=== PATIENT | male | born 1975 | race Caucasian/White ===

== ENCOUNTER 2023-06-10 17:03 | Inpatient (IN) | payer OTHER ==
[~2023-06-10] VITALS: Ht 170.2 cm; Wt 57.6 kg
[2023-06-10] MEDS ORDERED: VANCOMYCIN 1G PREMIX 200 ML IV ONE (17:15)
[2023-06-10] MEDS ORDERED: MEROPENEM 1,000 MG in SODIUM CHLORIDE 0.9% 100 ML IV ONE (17:15)
[2023-06-10] MEDS ORDERED: SODIUM CHLORIDE 0.9% 1,000 ML IV ONE (17:15)
[2023-06-10] MEDS ORDERED: PROPOFOL 10MG/ML 100ML 100 ML IV ONE (17:15)
[2023-06-10] MEDS ORDERED: FENTANYL CITRATE/PF 50MCG/ML 2ML VIAL IV ONE (17:15)
[2023-06-10 17:24] VITALS: PULSE 140; RESP 23
[2023-06-10 17:25] LABS: BG CARBOXYHEMOGLOBIN 0.6 % (0.5-1.5); BG DEOXYHEMOGLOBIN 0.2 % (0.0-5.0); BG HCO3 ACT 25.4 mmol/L (22.0-26.0); BG METHEMOGLOBIN 0.5 % (0.0-1.5); BG OXYGEN SATURATION 99.8 % (92.0-98.5); BG OXYHEMOGLOBIN 98.7 % (94.0-97.0); BG PCO2 35.4 mmHg (35.0-45.0); BG PH 7.474 (7.350-7.450); BG PO2 295.4 mmHg (75.0-100.0); BG SAMPLE SITE RIGHT RADIAL; BG TOTAL HEMOGLOBIN 11.7 g/dL (12.0-18.0); BG VENT MODE VENT - AC
[2023-06-10] MEDS ORDERED: DOXYCYCLINE HYCLATE 100 MG/VIAL IV ONE (17:30)
[2023-06-10 17:39] LABS: BASOPHILS % 0.2 % (0.0-2.0); EOSINOPHILS % 0.2 % (0.0-5.0); HEMATOCRIT. 33.3 % (42.0-52.0); HEMOGLOBIN. 10.7 g/dL (14.0-18.0); LYMPHOCYTES % 7.5 % (20.0-50.0); MEAN CORPUSCULAR HEMOGLOBIN 27.8 pg (28.0-32.0); MEAN CORPUSCULAR HGB CONC 32.1 g/dL (31.0-37.0); MEAN CORPUSCULAR VOLUME 86.6 fL (80.0-94.0); MONOCYTES % 6.7 % (2.0-8.0); NEUTROPHILS % 85.4 % (40.0-76.0); PLATELET 344 x1000/uL (130-400); RED BLOOD CELL COUNT 3.85 mill/uL (4.7-6.1); RED CELL DISTRIBUTION WIDTH 19.9 % (11.6-14.6); WHITE BLOOD COUNT 5.2 x1000/uL (4.5-11.0)
[2023-06-10 17:44] LABS: CHLORIDE 93 mEq/L (98-107); INDEX HEMOLYSI 1 (1-3); INDEX ICTERIC 1 (1-4); INDEX LIPEMIC 1 (1-3); POTASSIUM 4.6 mEq/L (3.5-5.1); SODIUM 126 mEq/L (136-145)
[2023-06-10] MEDS ORDERED: DOXYCYCLINE 100MG in DEXTROSE 5% WATER 100ML IV NR (17:45)
[2023-06-10 17:47] LABS: D-DIMER 4.03 mg/L FEU (<0.50); INR 1.1; PROTHROMBIN TIME 11.5 sec (9.6-11.0)
[2023-06-10 18:04] LABS: ALANINE AMINOTRANSFERASE 84 IU/L (13-61); ASPARTATE AMINOTRANSFERASE 114 IU/L (15-37); BILIRUBIN TOTAL 0.5 mg/dL (0.1-1.0); CALCIUM 7.8 mg/dL (8.5-10.1); CARBON DIOXIDE 27 mEq/L (21-32); CREATININE 0.5 mg/dL (0.6-1.3); NT PRO B-TYPE NATRIURETIC PEP 3705 pg/mL (5-125); TROPONIN I HIGH SENSITIVITY 38 ng/L (<78); UREA NITROGEN BLOOD 13 mg/dL (7-21)
[2023-06-10 18:20] LABS: GLUCOSE 46 mg/dL (70-105)
[2023-06-10] MEDS ORDERED: ACETAMINOPHEN 325MG SUPP PR ONE (18:30)
[2023-06-10] MEDS ORDERED: ACETAMINOPHEN 325MG SUPP PR NR (18:30)
[2023-06-10] MEDS ORDERED: DEXTROSE 50% WATER 50ML SYRINGE IV ONE (18:30)
[2023-06-10] MEDS ORDERED: DEXT 5%/0.9% NACL 500 ML IV ONE (18:30)
[2023-06-10 18:44] LABS: CLARITY URINE CLOUDY (CLEAR); COLOR URINE DARK YELLOW (YELLOW); GLUCOSE URINE NEGATIVE (NEGATIVE); KETONES URINE NEGATIVE (NEGATIVE); LEUKOCYTE ESTERASE URINE NEGATIVE (NEGATIVE); NITRITE URINE NEGATIVE (NEGATIVE); OCCULT BLOOD URINE 1+ (NEGATIVE); PH URINE 5.5 (4.5-8.0); PROTEIN URINE 2+ (NEGATIVE); SPECIFIC GRAVITY URINE 1.022 (1.005-1.030); UROBILINOGEN URINE 0.2 E.U./dL (0.2-1.0)
[2023-06-10 18:46] LABS: SQUAMOUS EPITHELIAL CELL URINE 1+ /lpf (RARE/1+); YEAST URINE NONE SEEN
[2023-06-10 19:09] LABS: AMORPHOUS SEDIMENT URINE 1+ /lpf; BACTERIA URINE 2+; WBC URINE 0-2 /hpf (0-2)
[2023-06-10 19:10] LABS: FINE GRANULAR CASTS URINE 0-5 /lpf
[2023-06-10 19:11] LABS: URIC ACID CRYSTALS URINE 1+ /lpf
[2023-06-10 19:57] LABS: TROPONIN I HIGH SENSITIVITY 181 ng/L (<78)
[2023-06-10 20:06] VITALS: PULSE 112; RESP 20
[2023-06-10] MEDS ORDERED: FENTANYL 2500MCG/250ML PMX 250 ML IV ONE (20:30)
[2023-06-10] MEDS ORDERED: FENTANYL CITRATE 2,500 MCG in SODIUM CHLORIDE 0.9% 200 ML IV PRN (21:30)
[2023-06-10 21:57] VITALS: PULSE 111; RESP 22
[2023-06-10] MEDS ORDERED: NOREPINEPHRINE 8MG/250ML PMX 250 ML IV ONE (22:45)
[2023-06-10] MEDS ORDERED: PROPOFOL 10MG/ML 100ML 100 ML IV PRN (23:30)
[2023-06-10] MEDS ORDERED: IPRATROPIUM/ALBUTEROL 0.5-3(2.5)MG/3ML NEB HHN PRN (23:30)
[2023-06-11] VITALS (29 sets, daily range): BP systolic 86–113; BP diastolic 57–80; PULSE 20–109; RESP 16–21; TEMP 97.6–99.4
[2023-06-11] MEDS: IPRATROPIUM/ALBUTEROL 0.5-3(2.5)MG/3ML NEB HHN SCH ×4 (00:22→20:45)
[2023-06-11] MEDS: PROPOFOL 10MG/ML 100ML 100 ML IV PRN ×4 (03:19→20:15)
[2023-06-11] MEDS: NOREPINEPHRINE 8MG/250ML PMX 250 ML IV PRN ×3 (07:06→20:48)
[2023-06-11] MEDS: PIPERACILLIN/TAZOBACTAM 3.375 G in DEXTROSE 5% WATER 50 ML IV SCH ×3 (07:07→22:18)
[2023-06-11] MEDS: SODIUM CHLORIDE 0.9% 1,000 ML IV SCH ×2 (07:42→18:00)
[2023-06-11] MEDS ORDERED: VANCOMYCIN 1.25GM PMX (XELLIA) 250 ML IV SCH (08:30)
[2023-06-11] MEDS: PANTOPRAZOLE SODIUM 40 MG/VIAL IV SCH ×2 (08:33→17:59)
[2023-06-11] MEDS ORDERED: ENOXAPARIN 40MG/0.4ML SYR SUBCUT SCH (09:00)
[2023-06-11 09:21] LABS: BG BASE EXCESS 0.5 mmol/L (-2.0-2.0); BG CARBOXYHEMOGLOBIN 0.3 % (0.5-1.5); BG DEOXYHEMOGLOBIN 1.1 % (0.0-5.0); BG FRACTION INSPIRED OXYGEN 60; BG METHEMOGLOBIN 0.4 % (0.0-1.5); BG OXYGEN SATURATION 98.9 % (92.0-98.5); BG OXYHEMOGLOBIN 98.2 % (94.0-97.0); BG PCO2 39.4 mmHg (35.0-45.0); BG SAMPLE SITE RIGHT RADIAL; BG TOTAL HEMOGLOBIN 10.8 g/dL (12.0-18.0); BG VENT MODE VENT - AC
[2023-06-11 09:36] LABS: BASOPHILS % 0.2 % (0.0-2.0); EOSINOPHILS % 0.2 % (0.0-5.0); HEMOGLOBIN. 8.8 g/dL (14.0-18.0); LYMPHOCYTES % 7.6 % (20.0-50.0); MEAN CORPUSCULAR HEMOGLOBIN 28.4 pg (28.0-32.0); MEAN CORPUSCULAR HGB CONC 32.5 g/dL (31.0-37.0); MEAN CORPUSCULAR VOLUME 87.5 fL (80.0-94.0); MEAN PLATELET VOLUME 7.7 fl (7.4-10.4); PLATELET 377 x1000/uL (130-400); RED BLOOD CELL COUNT 3.09 mill/uL (4.7-6.1); RED CELL DISTRIBUTION WIDTH 20.4 % (11.6-14.6); WHITE BLOOD COUNT 7.5 x1000/uL (4.5-11.0)
[2023-06-11 10:04] LABS: CALCIUM 7.1 mg/dL (8.5-10.1); CARBON DIOXIDE 25 mEq/L (21-32); CHLORIDE 105 mEq/L (98-107); GLUCOSE 110 mg/dL (70-105); INDEX HEMOLYSI 1 (1-3); INDEX ICTERIC 1 (1-4); INDEX LIPEMIC 1 (1-3); POTASSIUM 3.9 mEq/L (3.5-5.1); SODIUM 134 mEq/L (136-145); UREA NITROGEN BLOOD 9 mg/dL (7-21)
[2023-06-11 10:07] LABS: CREATININE 0.6 mg/dL (0.6-1.3)
[2023-06-11] MEDS: DEXT 5% IV SCH ×3 (13:28→21:32)
[2023-06-11] MEDS: WATER IV SCH ×3 (13:28→21:32)
[2023-06-11] MEDS: SULFAMETHOXAZOLE IV SCH ×2 (13:28→21:32)
[2023-06-11] MEDS: TRIMETHOPRIM IV SCH ×2 (13:28→21:32)
[2023-06-11] MEDS: VANCOMYCIN 750MG PREMIX 150 ML IV SCH ×2 (13:28→23:00)
[2023-06-11 14:32] LABS: SODIUM URINE RANDOM 45 mEq/L
[2023-06-11 14:36] LABS: *AMPHETAMINES SCREEN URINE NEGATIVE (NEGATIVE); *BARBITURATES SCREEN URINE NEGATIVE (NEGATIVE); *BENZODIAZEPINES SCREEN URINE NEGATIVE (NEGATIVE); *COCAINE SCREEN URINE NEGATIVE (NEGATIVE); CANNABINOID URINE SCREEN NEGATIVE (NEGATIVE); ECSTASY MDMA SCREEN URINE NEGATIVE (NEGATIVE); METHADONE URINE SCREEN NEGATIVE (NEGATIVE); OPIATES URINE SCREEN NEGATIVE (NEGATIVE); PHENCYCLIDINE URINE SCREEN NEGATIVE (NEGATIVE)
[2023-06-11 14:46] LABS: OSMOLALITY URINE 241 mOsm/kg (500-850)
[2023-06-11] MEDS: AZITHROMYCIN IV SCH (14:54)
[2023-06-11] MEDS ORDERED: PROPOFOL 10MG/ML 100ML 100 ML IV PRN (16:00)
[2023-06-11] MEDS ORDERED: FENTANYL 2500MCG/250ML PMX 250 ML IV PRN (16:30)
[2023-06-11 17:54] LABS: HEPATITIS B SURFACE ANTIGEN NEGATIVE
[2023-06-11 18:22] LABS: HEPATITIS B CORE AB IGM NEGATIVE
[2023-06-11 18:57] LABS: HEPATITIS C VIR.AB 0.12 INDEXVAL (0.00-0.80)
[2023-06-11 19:33] LABS: HEPATITIS A AB IGM NEGATIVE (NEGATIVE)
[2023-06-12] VITALS (33 sets, daily range): BP systolic 87–128; BP diastolic 50–86; PULSE 84–120; RESP 14–28; TEMP 98.9–99.5; O2SAT 97
[2023-06-12] MEDS: IPRATROPIUM/ALBUTEROL 0.5-3(2.5)MG/3ML NEB HHN SCH ×4 (01:09→20:37)
[2023-06-12] MEDS: NOREPINEPHRINE 8MG/250ML PMX 250 ML IV PRN ×2 (02:19→07:24)
[2023-06-12] MEDS: PROPOFOL 10MG/ML 100ML 100 ML IV PRN ×2 (02:32→09:19)
[2023-06-12 04:44] LABS: HEMATOCRIT. 28.3 % (42.0-52.0); HEMOGLOBIN. 9.4 g/dL (14.0-18.0); MEAN CORPUSCULAR HEMOGLOBIN 28.4 pg (28.0-32.0); MEAN CORPUSCULAR HGB CONC 33.2 g/dL (31.0-37.0); MEAN CORPUSCULAR VOLUME 85.7 fL (80.0-94.0); MEAN PLATELET VOLUME 7.6 fl (7.4-10.4); PLATELET 333 x1000/uL (130-400); RED CELL DISTRIBUTION WIDTH 19.6 % (11.6-14.6); WHITE BLOOD COUNT 5.6 x1000/uL (4.5-11.0)
[2023-06-12] MEDS: PIPERACILLIN/TAZOBACTAM 3.375 G in DEXTROSE 5% WATER 50 ML IV SCH ×3 (04:52→21:29)
[2023-06-12 04:56] LABS: CHLORIDE 100 mEq/L (98-107); INDEX HEMOLYSI 1 (1-3); INDEX ICTERIC 1 (1-4); INDEX LIPEMIC 1 (1-3); POTASSIUM 4.2 mEq/L (3.5-5.1); SODIUM 130 mEq/L (136-145)
[2023-06-12] MEDS: TRIMETHOPRIM IV SCH ×3 (05:07→21:29)
[2023-06-12] MEDS: WATER IV SCH ×3 (05:07→21:29)
[2023-06-12] MEDS: DEXT 5% IV SCH ×3 (05:07→21:29)
[2023-06-12] MEDS: SULFAMETHOXAZOLE IV SCH ×3 (05:07→21:29)
[2023-06-12 05:18] LABS: ALANINE AMINOTRANSFERASE 49 IU/L (13-61); ALBUMIN 1.5 g/dL (3.4-5.0); ASPARTATE AMINOTRANSFERASE 36 IU/L (15-37); BILIRUBIN DIRECT 0.1 mg/dL (0.0-0.2); BILIRUBIN TOTAL 0.5 mg/dL (0.1-1.0); CALCIUM 6.7 mg/dL (8.5-10.1); CARBON DIOXIDE 24 mEq/L (21-32); CREATININE 0.6 mg/dL (0.6-1.3); GLUCOSE 265 mg/dL (70-105); TRIGLYCERIDE 302 mg/dL (0-150); UREA NITROGEN BLOOD 12 mg/dL (7-21); VANCOMYCIN TROUGH 25.5 ug/mL (5.0-10.0)
[2023-06-12 05:37] LABS: DIFFERENTIAL COMMENT 1
[2023-06-12 06:15] LABS: TROPONIN I HIGH SENSITIVITY 78 ng/L (<78)
[2023-06-12] MEDS: VANCOMYCIN 750MG PREMIX 150 ML IV SCH ×2 (06:31→21:29)
[2023-06-12] MEDS: SODIUM CHLORIDE 0.9% 1,000 ML IV SCH ×2 (07:25→21:29)
[2023-06-12] MEDS ORDERED: DEXTROSE 50% WATER 50ML SYRINGE IV PRN (08:30)
[2023-06-12] MEDS: PANTOPRAZOLE SODIUM 40 MG/VIAL IV SCH ×2 (09:18→16:22)
[2023-06-12 10:11] LABS: BG BASE EXCESS -2.7 mmol/L (-2.0-2.0); BG CARBOXYHEMOGLOBIN 0.3 % (0.5-1.5); BG DEOXYHEMOGLOBIN 3.1 % (0.0-5.0); BG FRACTION INSPIRED OXYGEN 40; BG HCO3 ACT 22.3 mmol/L (22.0-26.0); BG METHEMOGLOBIN 0.1 % (0.0-1.5); BG OXYGEN SATURATION 96.9 % (92.0-98.5); BG OXYHEMOGLOBIN 96.5 % (94.0-97.0); BG PCO2 39.8 mmHg (35.0-45.0); BG PH 7.367 (7.350-7.450); BG PO2 97.3 mmHg (75.0-100.0); BG SAMPLE SITE RIGHT RADIAL; BG VENT MODE VENT - AC
[2023-06-12 12:12] LABS: ANISOCYTOSIS 1+; PLATELET ESTIMATE NORMAL
[2023-06-12] MEDS: ONDANSETRON HCL 4MG/2ML INJ IV PRN (12:50)
[2023-06-12] MEDS: INSULIN LISPRO 100 UNITS/ML SUBCUT SCH ×2 (12:51→17:36)
[2023-06-12] MEDS: BLOOD SUGAR DIAGNOSTIC STRIP TEST SCH ×2 (12:51→17:36)
[2023-06-12 13:07] LABS: BG BASE EXCESS -0.4 mmol/L (-2.0-2.0); BG CARBOXYHEMOGLOBIN 0.3 % (0.5-1.5); BG DEOXYHEMOGLOBIN 2.5 % (0.0-5.0); BG FRACTION INSPIRED OXYGEN 40; BG HCO3 ACT 24.1 mmol/L (22.0-26.0); BG METHEMOGLOBIN 0.6 % (0.0-1.5); BG OXYGEN SATURATION 97.5 % (92.0-98.5); BG OXYHEMOGLOBIN 96.6 % (94.0-97.0); BG PCO2 38.6 mmHg (35.0-45.0); BG PH 7.413 (7.350-7.450); BG PO2 102.2 mmHg (75.0-100.0); BG SAMPLE SITE RIGHT RADIAL; BG TOTAL HEMOGLOBIN 10.3 g/dL (12.0-18.0); BG VENT MODE VENT - CPAP
[2023-06-13] VITALS (27 sets, daily range): BP systolic 82–117; BP diastolic 49–71; PULSE 95–111; RESP 18–25; TEMP 98–99.1; O2SAT 94–97
[2023-06-13] MEDS: BLOOD SUGAR DIAGNOSTIC STRIP TEST SCH ×4 (00:20→17:46)
[2023-06-13] MEDS: IPRATROPIUM/ALBUTEROL 0.5-3(2.5)MG/3ML NEB HHN SCH ×4 (01:47→20:43)
[2023-06-13] MEDS ORDERED: NALOXONE HCL 0.4MG/ML VIAL IV PRN (02:30)
[2023-06-13] MEDS: MORPHINE SULFATE 2 MG/ML CPJ (NOT FOR IM USE) IV PRN ×2 (02:31→17:57)
[2023-06-13] MEDS ORDERED: SULFAMETHOXAZOLE IV SCH ×3 (04:07→12:41)
[2023-06-13] MEDS ORDERED: WATER IV SCH ×3 (04:07→12:41)
[2023-06-13] MEDS ORDERED: DEXT 5% IV SCH ×3 (04:07→12:41)
[2023-06-13] MEDS ORDERED: TRIMETHOPRIM IV SCH ×3 (04:07→12:41)
[2023-06-13] MEDS: PIPERACILLIN/TAZOBACTAM 3.375 G in DEXTROSE 5% WATER 50 ML IV SCH ×3 (05:27→21:52)
[2023-06-13 05:32] LABS: HEMOGLOBIN. 7.9 g/dL (14.0-18.0); MEAN CORPUSCULAR VOLUME 84.8 fL (80.0-94.0); MEAN PLATELET VOLUME 7.4 fl (7.4-10.4); PLATELET 264 x1000/uL (130-400); RED BLOOD CELL COUNT 2.83 mill/uL (4.7-6.1); RED CELL DISTRIBUTION WIDTH 19.2 % (11.6-14.6); WHITE BLOOD COUNT 3.9 x1000/uL (4.5-11.0)
[2023-06-13 05:49] LABS: DIFFERENTIAL COMMENT 1
[2023-06-13 05:53] LABS: CHLORIDE 97 mEq/L (98-107); INDEX HEMOLYSI 1 (1-3); INDEX ICTERIC 1 (1-4); INDEX LIPEMIC 1 (1-3); POTASSIUM 4.1 mEq/L (3.5-5.1); SODIUM 127 mEq/L (136-145)
[2023-06-13 05:56] LABS: CARBON DIOXIDE 28 mEq/L (21-32); CREATININE 0.5 mg/dL (0.6-1.3); GLUCOSE 75 mg/dL (70-105); UREA NITROGEN BLOOD 9 mg/dL (7-21)
[2023-06-13] MEDS: INSULIN LISPRO 100 UNITS/ML SUBCUT SCH ×4 (06:00→17:45)
[2023-06-13] MEDS: SODIUM CHLORIDE 0.9% 1,000 ML IV SCH ×2 (06:55→10:10)
[2023-06-13] MEDS: VANCOMYCIN 750MG PREMIX 150 ML IV SCH ×2 (09:24→20:51)
[2023-06-13] MEDS: PANTOPRAZOLE SODIUM 40 MG/VIAL IV SCH ×2 (09:24→17:45)
[2023-06-13] MEDS: MENTHOL/LANOLIN/CALAMINE/ZN OX OINT 71GM TOP SCH ×2 (10:10→17:45)
[2023-06-13] MEDS ORDERED: ALBUMIN HUMAN 12.5G/250ML (5%) IV PRN (10:15)
[2023-06-13 10:53] LABS: ANISOCYTOSIS 2+; PLATELET ESTIMATE NORMAL
[2023-06-13] MEDS: TRIMETHOPRIM IV SCH ×2 (14:09→20:51)
[2023-06-13] MEDS: MIDODRINE HCL 5MG TABLET PO SCH ×2 (14:09→21:52)
[2023-06-13] MEDS: DEXT 5% IV SCH ×2 (14:09→20:51)
[2023-06-13] MEDS: WATER IV SCH ×2 (14:09→20:51)
[2023-06-13] MEDS: SULFAMETHOXAZOLE IV SCH ×2 (14:09→20:51)
[2023-06-14] VITALS (22 sets, daily range): BP systolic 80–113; BP diastolic 52–74; PULSE 93–106; RESP 18–24; TEMP 98.4–99.5; O2SAT 96–97
[2023-06-14] MEDS: IPRATROPIUM/ALBUTEROL 0.5-3(2.5)MG/3ML NEB HHN SCH ×3 (00:54→13:56)
[2023-06-14 05:41] LABS: BASOPHILS % 0.5 % (0.0-2.0); EOSINOPHILS % 0.3 % (0.0-5.0); HEMOGLOBIN. 7.3 g/dL (14.0-18.0); LYMPHOCYTES % 9.6 % (20.0-50.0); MEAN CORPUSCULAR HEMOGLOBIN 28.2 pg (28.0-32.0); MEAN CORPUSCULAR HGB CONC 33.1 g/dL (31.0-37.0); MEAN PLATELET VOLUME 7.4 fl (7.4-10.4); MONOCYTES % 8.1 % (2.0-8.0); NEUTROPHILS % 81.5 % (40.0-76.0); PLATELET 240 x1000/uL (130-400); RED BLOOD CELL COUNT 2.59 mill/uL (4.7-6.1); RED CELL DISTRIBUTION WIDTH 18.9 % (11.6-14.6); WHITE BLOOD COUNT 4.3 x1000/uL (4.5-11.0)
[2023-06-14] MEDS: INSULIN LISPRO 100 UNITS/ML SUBCUT SCH ×4 (06:00→17:15)
[2023-06-14 06:08] LABS: CHLORIDE 99 mEq/L (98-107); INDEX HEMOLYSI 1 (1-3); INDEX ICTERIC 1 (1-4); INDEX LIPEMIC 1 (1-3); SODIUM 131 mEq/L (136-145)
[2023-06-14 06:28] LABS: ALBUMIN 1.6 g/dL (3.4-5.0); CALCIUM 7.2 mg/dL (8.5-10.1); CARBON DIOXIDE 27 mEq/L (21-32); CREATININE 0.5 mg/dL (0.6-1.3); GLUCOSE 80 mg/dL (70-105); PREALBUMIN 9.4 mg/dL (20.0-40.0); UREA NITROGEN BLOOD 7 mg/dL (7-21)
[2023-06-14] MEDS: TRIMETHOPRIM IV SCH ×3 (06:54→22:56)
[2023-06-14] MEDS: SULFAMETHOXAZOLE IV SCH ×3 (06:54→22:56)
[2023-06-14] MEDS: WATER IV SCH ×3 (06:54→22:56)
[2023-06-14] MEDS: DEXT 5% IV SCH ×3 (06:54→22:56)
[2023-06-14] MEDS: PIPERACILLIN/TAZOBACTAM 3.375 G in DEXTROSE 5% WATER 50 ML IV SCH ×3 (06:54→22:57)
[2023-06-14] MEDS: BLOOD SUGAR DIAGNOSTIC STRIP TEST SCH ×4 (06:55→17:15)
[2023-06-14] MEDS: MIDODRINE HCL 5MG TABLET PO SCH ×3 (06:55→23:03)
[2023-06-14 09:11] LABS: % CD 3 POS. LYMPHOCYTES 71.3 % (57.5-86.2); % CD 4 POS. LYMPHOCYTES 3.2 % (30.8-58.5); % CD 8 POS. LYMPH 67.7 % (12.0-35.5); ABSOLUTE CD 3 214 /uL (622-2402); ABSOLUTE CD 4 HELPER 10 /uL (359-1519); ABSOLUTE CD 8 SUPPRESSOR 203 /uL (109-897); ABSOLUTE LYMPHOCYTES 0.3 x10E3/uL (0.7-3.1); ABSOLUTE MONOCYTES 0.3 x10E3/uL (0.1-0.9); ABSOLUTE NEUTROPHILS 3.2 x10E3/uL (1.4-7.0); BASOPHILS 0 % (Not Estab.); CD4/CD8 RATIO 0.05 (0.92-3.72); EOSINOPHILS 0 % (Not Estab.); HEMATOCRIT 24.1 % (37.5-51.0); IMMATURE GRANULOCYTES 5 % (Not Estab.); IMMATURE GRANULOCYTES ABSOLUTE 0.2 x10E3/uL (0.0-0.1); LYMPHOCYTES 8 % (Not Estab.); MEAN CORPUSCULAR HEMOGLOBIN 28.9 pg (26.6-33.0); MEAN CORPUSCULAR HGB CONC. 33.2 g/dL (31.5-35.7); MEAN CORPUSCULAR VOLUME 87 fL (79-97); MONOCYTES 6 % (Not Estab.); NEUTROPHILS 81 % (Not Estab.); PLATELETS 261 x10E3/uL (150-450); RBC 2.77 x10E6/uL (4.14-5.80); RED CELL DISTRIBUTION WIDTH 17.2 % (11.6-15.4); WBC 3.9 x10E3/uL (3.4-10.8)
[2023-06-14] MEDS: PANTOPRAZOLE SODIUM 40 MG/VIAL IV SCH ×2 (09:20→17:18)
[2023-06-14] MEDS: VANCOMYCIN 750MG PREMIX 150 ML IV SCH ×2 (09:21→22:57)
[2023-06-14] MEDS: MENTHOL/LANOLIN/CALAMINE/ZN OX OINT 71GM TOP SCH ×2 (09:22→17:18)
[2023-06-14] MEDS: SODIUM CHLORIDE 0.9% 1,000 ML IV SCH (13:02)
[2023-06-14] MEDS: MORPHINE SULFATE 2 MG/ML CPJ (NOT FOR IM USE) IV PRN (17:19)
[2023-06-14] MEDS: ONDANSETRON HCL 4MG/2ML INJ IV PRN (17:27)
[2023-06-15] MEDS: SODIUM CHLORIDE 0.9% 1,000 ML IV SCH ×2 (02:35→16:06)
[2023-06-15] MEDS: INSULIN LISPRO 100 UNITS/ML SUBCUT SCH ×5 (06:00→23:19)
[2023-06-15] MEDS: TRIMETHOPRIM IV SCH ×3 (06:05→23:19)
[2023-06-15] MEDS: SULFAMETHOXAZOLE IV SCH ×3 (06:05→23:19)
[2023-06-15] MEDS: DEXT 5% IV SCH ×3 (06:05→23:19)
[2023-06-15] MEDS: WATER IV SCH ×3 (06:05→23:19)
[2023-06-15] MEDS: PIPERACILLIN/TAZOBACTAM 3.375 G in DEXTROSE 5% WATER 50 ML IV SCH ×3 (06:06→21:11)
[2023-06-15] MEDS: MIDODRINE HCL 5MG TABLET PO SCH ×3 (06:12→21:11)
[2023-06-15 06:47] LABS: HEMATOCRIT. 26.4 % (42.0-52.0); HEMOGLOBIN. 8.6 g/dL (14.0-18.0); MEAN CORPUSCULAR HGB CONC 32.6 g/dL (31.0-37.0); MEAN CORPUSCULAR VOLUME 85.9 fL (80.0-94.0); MEAN PLATELET VOLUME 7.5 fl (7.4-10.4); PLATELET 238 x1000/uL (130-400); RED BLOOD CELL COUNT 3.08 mill/uL (4.7-6.1); RED CELL DISTRIBUTION WIDTH 18.8 % (11.6-14.6); WHITE BLOOD COUNT 4.5 x1000/uL (4.5-11.0)
[2023-06-15] MEDS: BLOOD SUGAR DIAGNOSTIC STRIP TEST SCH ×5 (06:47→23:19)
[2023-06-15 06:49] LABS: DIFFERENTIAL COMMENT 1
[2023-06-15 07:01] LABS: CHLORIDE 96 mEq/L (98-107); INDEX HEMOLYSI 1 (1-3); INDEX ICTERIC 1 (1-4); INDEX LIPEMIC 1 (1-3); POTASSIUM 4.6 mEq/L (3.5-5.1); SODIUM 128 mEq/L (136-145)
[2023-06-15 07:07] LABS: CALCIUM 7.5 mg/dL (8.5-10.1); CARBON DIOXIDE 28 mEq/L (21-32); CREATININE 0.5 mg/dL (0.6-1.3); GLUCOSE 77 mg/dL (70-105); UREA NITROGEN BLOOD 7 mg/dL (7-21)
[2023-06-15] MEDS: MENTHOL/LANOLIN/CALAMINE/ZN OX OINT 71GM TOP SCH ×2 (09:00→17:00)
[2023-06-15 09:27] VITALS: PULSE 84; RESP 17; O2SAT 97
[2023-06-15] MEDS: IPRATROPIUM/ALBUTEROL 0.5-3(2.5)MG/3ML NEB HHN SCH ×3 (09:27→20:35)
[2023-06-15] MEDS: ONDANSETRON HCL 4MG/2ML INJ IV PRN (09:58)
[2023-06-15] MEDS: PANTOPRAZOLE SODIUM 40 MG/VIAL IV SCH ×2 (09:58→18:09)
[2023-06-15] MEDS: MORPHINE SULFATE 2 MG/ML CPJ (NOT FOR IM USE) IV PRN (10:00)
[2023-06-15 10:45] LABS: NUCLEATED RED BLOOD CELLS 1 /100 WBC; PLATELET ESTIMATE NORMAL
[2023-06-15] MEDS ORDERED: MORPHINE SULFATE 2 MG/ML CPJ (NOT FOR IM USE) IV PRN (10:45)
[2023-06-15 10:46] LABS: ANISOCYTOSIS 2+
[2023-06-15] MEDS: VANCOMYCIN 750MG PREMIX 150 ML IV SCH ×2 (11:12→21:11)
[2023-06-15 12:00] VITALS: BP 145/80; PULSE 90; RESP 18; TEMP 98
[2023-06-15 16:00] VITALS: BP 150/70; PULSE 85; RESP 20; TEMP 99
[2023-06-15 20:00] VITALS: BP 107/64; PULSE 89; RESP 20; TEMP 98.2
[2023-06-15 20:35] VITALS: PULSE 91; RESP 18; O2SAT 98
[2023-06-16] VITALS: BP 100/65; PULSE 85; RESP 19; TEMP 97.9
[2023-06-16] MEDS: IPRATROPIUM/ALBUTEROL 0.5-3(2.5)MG/3ML NEB HHN SCH (01:40)
[2023-06-16 04:00] VITALS: BP 103/70; PULSE 87; RESP 7; TEMP 97.8
[2023-06-16] MEDS: SODIUM CHLORIDE 0.9% 1,000 ML IV SCH ×2 (05:15→17:46)
[2023-06-16] MEDS: PIPERACILLIN/TAZOBACTAM 3.375 G in DEXTROSE 5% WATER 50 ML IV SCH (05:56)
[2023-06-16] MEDS: DEXT 5% IV SCH ×3 (05:56→21:10)
[2023-06-16] MEDS: SULFAMETHOXAZOLE IV SCH ×3 (05:56→21:10)
[2023-06-16] MEDS: WATER IV SCH ×3 (05:56→21:10)
[2023-06-16] MEDS: MIDODRINE HCL 5MG TABLET PO SCH ×3 (05:56→21:13)
[2023-06-16] MEDS: TRIMETHOPRIM IV SCH ×3 (05:56→21:10)
[2023-06-16] MEDS: BLOOD SUGAR DIAGNOSTIC STRIP TEST SCH ×3 (05:57→17:22)
[2023-06-16] MEDS: INSULIN LISPRO 100 UNITS/ML SUBCUT SCH ×3 (06:00→17:23)
[2023-06-16 06:45] LABS: HEMATOCRIT. 27.1 % (42.0-52.0); HEMOGLOBIN. 8.9 g/dL (14.0-18.0); MEAN CORPUSCULAR HEMOGLOBIN 28.2 pg (28.0-32.0); MEAN CORPUSCULAR HGB CONC 32.9 g/dL (31.0-37.0); MEAN CORPUSCULAR VOLUME 85.6 fL (80.0-94.0); MEAN PLATELET VOLUME 7.5 fl (7.4-10.4); PLATELET 251 x1000/uL (130-400); RED BLOOD CELL COUNT 3.17 mill/uL (4.7-6.1); RED CELL DISTRIBUTION WIDTH 18.5 % (11.6-14.6); WHITE BLOOD COUNT 5.6 x1000/uL (4.5-11.0)
[2023-06-16 06:47] LABS: DIFFERENTIAL COMMENT 1
[2023-06-16 07:13] LABS: CHLORIDE 94 mEq/L (98-107); INDEX HEMOLYSI 1 (1-3); INDEX ICTERIC 1 (1-4); INDEX LIPEMIC 1 (1-3); POTASSIUM 4.4 mEq/L (3.5-5.1); SODIUM 127 mEq/L (136-145)
[2023-06-16 07:18] LABS: CALCIUM 7.4 mg/dL (8.5-10.1); CARBON DIOXIDE 28 mEq/L (21-32); CREATININE 0.6 mg/dL (0.6-1.3); GLUCOSE 79 mg/dL (70-105); UREA NITROGEN BLOOD 7 mg/dL (7-21)
[2023-06-16 08:00] VITALS: BP 101/59; PULSE 84; RESP 20; TEMP 98.3
[2023-06-16] MEDS: MENTHOL/LANOLIN/CALAMINE/ZN OX OINT 71GM TOP SCH ×2 (08:58→17:00)
[2023-06-16] MEDS: PANTOPRAZOLE SODIUM 40 MG/VIAL IV SCH ×2 (09:26→17:46)
[2023-06-16] MEDS: VANCOMYCIN 750MG PREMIX 150 ML IV SCH ×2 (09:27→21:11)
[2023-06-16 11:38] LABS: BG BASE EXCESS 2.6 mmol/L (-2.0-2.0); BG CARBOXYHEMOGLOBIN 0.1 % (0.5-1.5); BG HCO3 ACT 27.1 mmol/L (22.0-26.0); BG METHEMOGLOBIN 0.4 % (0.0-1.5); BG OXYGEN SATURATION 86.9 % (92.0-98.5); BG OXYHEMOGLOBIN 86.5 % (94.0-97.0); BG PCO2 41.5 mmHg (35.0-45.0); BG PH 7.433 (7.350-7.450); BG SAMPLE SITE RIGHT BRACHIAL; BG TOTAL HEMOGLOBIN 9.2 g/dL (12.0-18.0); BG VENT MODE ROOM AIR
[2023-06-16 12:00] VITALS: BP 133/95; PULSE 87; RESP 19; TEMP 98.2
[2023-06-16 14:57] LABS: ANISOCYTOSIS 2+; HYPOCHROMASIA 2+; MICROCYTOSIS 1+; PLATELET ESTIMATE NORMAL
[2023-06-16 15:12] LABS: THYROID STIMULATING HORMONE 3.4 uIU/mL (0.36-3.74)
[2023-06-16 16:00] VITALS: BP 105/76; PULSE 84; RESP 18; TEMP 98
[2023-06-16 20:00] VITALS: BP 104/73; PULSE 88; RESP 22; TEMP 98.2
[2023-06-17] VITALS (7 sets, daily range): BP systolic 99–141; BP diastolic 65–76; PULSE 84–94; RESP 16–23; TEMP 97.7–98.2; O2SAT 99
[2023-06-17] MEDS: DEXT 5% IV SCH ×3 (05:49→20:21)
[2023-06-17] MEDS: SULFAMETHOXAZOLE IV SCH ×3 (05:49→20:21)
[2023-06-17] MEDS: WATER IV SCH ×3 (05:49→20:21)
[2023-06-17] MEDS: TRIMETHOPRIM IV SCH ×3 (05:49→20:21)
[2023-06-17] MEDS: BLOOD SUGAR DIAGNOSTIC STRIP TEST SCH ×4 (05:51→17:50)
[2023-06-17] MEDS: MIDODRINE HCL 5MG TABLET PO SCH ×3 (05:51→17:49)
[2023-06-17] MEDS: INSULIN LISPRO 100 UNITS/ML SUBCUT SCH ×4 (06:00→17:54)
[2023-06-17 07:19] LABS: EOSINOPHILS % 0.1 % (0.0-5.0); HEMATOCRIT. 27.2 % (42.0-52.0); HEMOGLOBIN. 9.2 g/dL (14.0-18.0); LYMPHOCYTES % 8.2 % (20.0-50.0); MEAN CORPUSCULAR HEMOGLOBIN 28.7 pg (28.0-32.0); MEAN CORPUSCULAR HGB CONC 33.9 g/dL (31.0-37.0); MEAN CORPUSCULAR VOLUME 84.8 fL (80.0-94.0); MEAN PLATELET VOLUME 7.6 fl (7.4-10.4); MONOCYTES % 5.4 % (2.0-8.0); NEUTROPHILS % 85.3 % (40.0-76.0); PLATELET 255 x1000/uL (130-400); RED BLOOD CELL COUNT 3.21 mill/uL (4.7-6.1); RED CELL DISTRIBUTION WIDTH 18.4 % (11.6-14.6); WHITE BLOOD COUNT 5.4 x1000/uL (4.5-11.0)
[2023-06-17 07:54] LABS: CHLORIDE 93 mEq/L (98-107); INDEX HEMOLYSI 1 (1-3); INDEX ICTERIC 1 (1-4); INDEX LIPEMIC 1 (1-3); POTASSIUM 4.5 mEq/L (3.5-5.1); SODIUM 128 mEq/L (136-145)
[2023-06-17] MEDS: SODIUM CHLORIDE 0.9% 1,000 ML IV SCH ×2 (07:55→20:22)
[2023-06-17 08:00] LABS: CALCIUM 7.3 mg/dL (8.5-10.1); CARBON DIOXIDE 27 mEq/L (21-32); CREATININE 0.5 mg/dL (0.6-1.3); GLUCOSE 92 mg/dL (70-105); UREA NITROGEN BLOOD 7 mg/dL (7-21)
[2023-06-17] MEDS: PANTOPRAZOLE SODIUM 40 MG/VIAL IV SCH (09:17)
[2023-06-17] MEDS: MENTHOL/LANOLIN/CALAMINE/ZN OX OINT 71GM TOP SCH ×2 (09:17→16:38)
[2023-06-17] MEDS ORDERED: IPRATROPIUM/ALBUTEROL 0.5-3(2.5)MG/3ML NEB HHN PRN (11:30)
[2023-06-17] MEDS: IPRATROPIUM/ALBUTEROL 0.5-3(2.5)MG/3ML NEB HHN SCH ×2 (12:00→20:52)
[2023-06-17] MEDS: FAMOTIDINE 20MG/2ML VIAL IV SCH (13:05)
[2023-06-17] MEDS: ONDANSETRON HCL 4MG/2ML INJ IV PRN (20:21)
[2023-06-18] VITALS (10 sets, daily range): BP systolic 96–112; BP diastolic 64–73; PULSE 82–110; RESP 15–20; TEMP 97.6–98.4; O2SAT 95–100
[2023-06-18] MEDS: MIDODRINE HCL 5MG TABLET PO SCH ×4 (00:29→18:33)
[2023-06-18] MEDS: BLOOD SUGAR DIAGNOSTIC STRIP TEST SCH ×4 (00:29→17:45)
[2023-06-18] MEDS: IPRATROPIUM/ALBUTEROL 0.5-3(2.5)MG/3ML NEB HHN SCH ×4 (02:30→20:25)
[2023-06-18] MEDS: SULFAMETHOXAZOLE IV SCH ×3 (05:32→20:54)
[2023-06-18] MEDS: TRIMETHOPRIM IV SCH ×3 (05:32→20:54)
[2023-06-18] MEDS: WATER IV SCH ×4 (05:32→20:54)
[2023-06-18] MEDS: DEXT 5% IV SCH ×4 (05:32→20:54)
[2023-06-18] MEDS: INSULIN LISPRO 100 UNITS/ML SUBCUT SCH ×4 (05:44→17:46)
[2023-06-18 08:12] LABS: HEMATOCRIT. 25.5 % (42.0-52.0); HEMOGLOBIN. 8.5 g/dL (14.0-18.0); MEAN CORPUSCULAR HEMOGLOBIN 28.3 pg (28.0-32.0); MEAN CORPUSCULAR HGB CONC 33.4 g/dL (31.0-37.0); MEAN CORPUSCULAR VOLUME 84.8 fL (80.0-94.0); MEAN PLATELET VOLUME 7.6 fl (7.4-10.4); PLATELET 264 x1000/uL (130-400); RED BLOOD CELL COUNT 3.01 mill/uL (4.7-6.1); RED CELL DISTRIBUTION WIDTH 18.2 % (11.6-14.6); WHITE BLOOD COUNT 4.4 x1000/uL (4.5-11.0)
[2023-06-18 08:20] LABS: DIFFERENTIAL COMMENT 1
[2023-06-18 08:28] LABS: CHLORIDE 96 mEq/L (98-107); INDEX HEMOLYSI 1 (1-3); INDEX ICTERIC 1 (1-4); INDEX LIPEMIC 1 (1-3); POTASSIUM 4.7 mEq/L (3.5-5.1); SODIUM 131 mEq/L (136-145)
[2023-06-18 08:43] LABS: CALCIUM 7.5 mg/dL (8.5-10.1); CARBON DIOXIDE 30 mEq/L (21-32); CREATININE 0.6 mg/dL (0.6-1.3); GLUCOSE 70 mg/dL (70-105); UREA NITROGEN BLOOD 6 mg/dL (7-21)
[2023-06-18] MEDS: FAMOTIDINE 20MG/2ML VIAL IV SCH (08:56)
[2023-06-18] MEDS: MENTHOL/LANOLIN/CALAMINE/ZN OX OINT 71GM TOP SCH ×2 (08:56→17:45)
[2023-06-18] MEDS: SODIUM CHLORIDE 0.9% 1,000 ML IV SCH (10:50)
[2023-06-18] MEDS: AZITHROMYCIN IV SCH (14:12)
[2023-06-18] MEDS: ONDANSETRON HCL 4MG/2ML INJ IV PRN ×2 (14:13→18:33)
[2023-06-19] VITALS (10 sets, daily range): BP systolic 97–116; BP diastolic 62–74; PULSE 90–97; RESP 16–20; TEMP 97.5–98.7; O2SAT 98–99
[2023-06-19] MEDS: MIDODRINE HCL 5MG TABLET PO SCH ×4 (01:39→18:25)
[2023-06-19] MEDS: IPRATROPIUM/ALBUTEROL 0.5-3(2.5)MG/3ML NEB HHN SCH ×3 (02:43→21:17)
[2023-06-19 04:31] LABS: PLATELET ESTIMATE NORMAL
[2023-06-19] MEDS: DEXT 5% IV SCH ×2 (05:25→17:51)
[2023-06-19] MEDS: WATER IV SCH ×2 (05:25→17:51)
[2023-06-19] MEDS: TRIMETHOPRIM IV SCH ×2 (05:25→17:51)
[2023-06-19] MEDS: SULFAMETHOXAZOLE IV SCH ×2 (05:25→17:51)
[2023-06-19] MEDS: INSULIN LISPRO 100 UNITS/ML SUBCUT SCH ×5 (06:00→21:42)
[2023-06-19] MEDS: ONDANSETRON HCL 4MG/2ML INJ IV PRN ×2 (06:53→12:37)
[2023-06-19] MEDS: BLOOD SUGAR DIAGNOSTIC STRIP TEST SCH ×5 (06:53→21:42)
[2023-06-19] MEDS: MENTHOL/LANOLIN/CALAMINE/ZN OX OINT 71GM TOP SCH ×2 (09:00→17:00)
[2023-06-19] MEDS: FAMOTIDINE 20MG/2ML VIAL IV SCH ×2 (09:23→22:08)
[2023-06-19 17:21] LABS: HEMATOCRIT. 25.8 % (42.0-52.0); HEMOGLOBIN. 8.5 g/dL (14.0-18.0); MEAN CORPUSCULAR HEMOGLOBIN 27.8 pg (28.0-32.0); MEAN CORPUSCULAR HGB CONC 32.9 g/dL (31.0-37.0); MEAN CORPUSCULAR VOLUME 84.4 fL (80.0-94.0); MEAN PLATELET VOLUME 7.2 fl (7.4-10.4); PLATELET 267 x1000/uL (130-400); RED BLOOD CELL COUNT 3.05 mill/uL (4.7-6.1); RED CELL DISTRIBUTION WIDTH 18.8 % (11.6-14.6); WHITE BLOOD COUNT 4.5 x1000/uL (4.5-11.0)
[2023-06-19 17:26] LABS: DIFFERENTIAL COMMENT 1
[2023-06-19 17:48] LABS: CHLORIDE 93 mEq/L (98-107); INDEX HEMOLYSI 1 (1-3); INDEX ICTERIC 1 (1-4); INDEX LIPEMIC 1 (1-3); POTASSIUM 4.9 mEq/L (3.5-5.1); SODIUM 128 mEq/L (136-145)
[2023-06-19 17:54] LABS: CALCIUM 7.9 mg/dL (8.5-10.1); CARBON DIOXIDE 28 mEq/L (21-32); CREATININE 0.5 mg/dL (0.6-1.3); GLUCOSE 78 mg/dL (70-105); UREA NITROGEN BLOOD 5 mg/dL (7-21)
[2023-06-20] VITALS (9 sets, daily range): BP systolic 101–122; BP diastolic 55–79; PULSE 78–100; RESP 17–20; TEMP 97.1–98.9; O2SAT 99
[2023-06-20] MEDS: MIDODRINE HCL 5MG TABLET PO SCH ×4 (00:56→18:51)
[2023-06-20] MEDS: IPRATROPIUM/ALBUTEROL 0.5-3(2.5)MG/3ML NEB HHN SCH ×4 (01:27→20:58)
[2023-06-20] MEDS: TRIMETHOPRIM IV SCH ×4 (03:28→20:00)
[2023-06-20] MEDS: SULFAMETHOXAZOLE IV SCH ×4 (03:28→20:00)
[2023-06-20] MEDS: WATER IV SCH ×4 (03:28→20:00)
[2023-06-20] MEDS: DEXT 5% IV SCH ×4 (03:28→20:00)
[2023-06-20] MEDS: BLOOD SUGAR DIAGNOSTIC STRIP TEST SCH ×4 (06:00→21:22)
[2023-06-20] MEDS: INSULIN LISPRO 100 UNITS/ML SUBCUT SCH ×4 (06:00→21:21)
[2023-06-20 07:27] LABS: HEMATOCRIT. 25.7 % (42.0-52.0); HEMOGLOBIN. 8.4 g/dL (14.0-18.0); MEAN CORPUSCULAR HEMOGLOBIN 27.6 pg (28.0-32.0); MEAN CORPUSCULAR HGB CONC 32.7 g/dL (31.0-37.0); MEAN CORPUSCULAR VOLUME 84.4 fL (80.0-94.0); MEAN PLATELET VOLUME 7.1 fl (7.4-10.4); PLATELET 259 x1000/uL (130-400); RED BLOOD CELL COUNT 3.05 mill/uL (4.7-6.1); RED CELL DISTRIBUTION WIDTH 18.3 % (11.6-14.6); WHITE BLOOD COUNT 4.2 x1000/uL (4.5-11.0)
[2023-06-20 07:37] LABS: DIFFERENTIAL COMMENT 1
[2023-06-20 08:07] LABS: CHLORIDE 93 mEq/L (98-107); INDEX HEMOLYSI 1 (1-3); INDEX ICTERIC 1 (1-4); INDEX LIPEMIC 1 (1-3); SODIUM 126 mEq/L (136-145)
[2023-06-20 08:20] LABS: CALCIUM 7.7 mg/dL (8.5-10.1); CARBON DIOXIDE 30 mEq/L (21-32); CREATININE 0.5 mg/dL (0.6-1.3); GLUCOSE 77 mg/dL (70-105); UREA NITROGEN BLOOD 5 mg/dL (7-21)
[2023-06-20] MEDS: MENTHOL/LANOLIN/CALAMINE/ZN OX OINT 71GM TOP SCH ×2 (09:00→17:00)
[2023-06-20] MEDS ORDERED: SODIUM CHLORIDE 0.9% 1,000 ML IV NR (09:45)
[2023-06-20] MEDS: FAMOTIDINE 20MG/2ML VIAL IV SCH ×2 (10:18→10:31)
[2023-06-20 11:11] LABS: ANISOCYTOSIS 1+; PLATELET ESTIMATE NORMAL
[2023-06-20] MEDS: ONDANSETRON HCL 4MG/2ML INJ IV PRN (14:58)
[2023-06-20 17:12] LABS: ANISOCYTOSIS 1+; PLATELET ESTIMATE NORMAL
[2023-06-21] VITALS (8 sets, daily range): BP systolic 91–128; BP diastolic 60–79; PULSE 74–100; RESP 18–21; TEMP 97.8–98.3; O2SAT 98–99
[2023-06-21] MEDS: IPRATROPIUM/ALBUTEROL 0.5-3(2.5)MG/3ML NEB HHN SCH ×5 (00:30→20:52)
[2023-06-21] MEDS: MIDODRINE HCL 5MG TABLET PO SCH ×3 (01:12→06:00)
[2023-06-21] MEDS: ONDANSETRON HCL 4MG/2ML INJ IV PRN ×4 (01:26→21:47)
[2023-06-21] MEDS: FAMOTIDINE 20MG/2ML VIAL IV SCH ×3 (02:00→21:46)
[2023-06-21] MEDS: TRIMETHOPRIM IV SCH ×3 (03:14→18:00)
[2023-06-21] MEDS: DEXT 5% IV SCH ×3 (03:14→18:00)
[2023-06-21] MEDS: SULFAMETHOXAZOLE IV SCH ×3 (03:14→18:00)
[2023-06-21] MEDS: WATER IV SCH ×3 (03:14→18:00)
[2023-06-21] MEDS: INSULIN LISPRO 100 UNITS/ML SUBCUT SCH ×3 (06:00→17:31)
[2023-06-21] MEDS: BLOOD SUGAR DIAGNOSTIC STRIP TEST SCH ×3 (06:35→17:29)
[2023-06-21] MEDS: MENTHOL/LANOLIN/CALAMINE/ZN OX OINT 71GM TOP SCH (09:00)
[2023-06-21 10:59] LABS: HEMOGLOBIN. 8.4 g/dL (14.0-18.0); MEAN CORPUSCULAR HEMOGLOBIN 28.4 pg (28.0-32.0); MEAN CORPUSCULAR HGB CONC 33.8 g/dL (31.0-37.0); MEAN CORPUSCULAR VOLUME 84.1 fL (80.0-94.0); PLATELET 256 x1000/uL (130-400); RED BLOOD CELL COUNT 2.97 mill/uL (4.7-6.1)
[2023-06-21 11:08] LABS: DIFFERENTIAL COMMENT 1
[2023-06-21 11:28] LABS: CHLORIDE 88 mEq/L (98-107); INDEX HEMOLYSI 1 (1-3); INDEX ICTERIC 1 (1-4); INDEX LIPEMIC 1 (1-3); POTASSIUM 4.5 mEq/L (3.5-5.1); SODIUM 123 mEq/L (136-145)
[2023-06-21 11:33] LABS: CALCIUM 7.1 mg/dL (8.5-10.1); CARBON DIOXIDE 30 mEq/L (21-32); CREATININE 0.5 mg/dL (0.6-1.3); GLUCOSE 89 mg/dL (70-105); UREA NITROGEN BLOOD 5 mg/dL (7-21)
[2023-06-21] MEDS: ENOXAPARIN 40MG/0.4ML SYR SUBCUT SCH (12:00)
[2023-06-21] MEDS: MIDODRINE HCL 2.5MG TABLET PO SCH ×2 (14:00→22:06)
[2023-06-21 17:55] LABS: ANISOCYTOSIS 1+; PLATELET ESTIMATE NORMAL
[2023-06-22] VITALS (7 sets, daily range): BP systolic 96–115; BP diastolic 50–77; PULSE 66–94; RESP 17–20; TEMP 97.7–98.7
[2023-06-22] MEDS: WATER IV SCH ×3 (02:19→10:32)
[2023-06-22] MEDS: SULFAMETHOXAZOLE IV SCH ×3 (02:19→10:32)
[2023-06-22] MEDS: TRIMETHOPRIM IV SCH ×3 (02:19→10:32)
[2023-06-22] MEDS: DEXT 5% IV SCH ×3 (02:19→10:32)
[2023-06-22] MEDS: IPRATROPIUM/ALBUTEROL 0.5-3(2.5)MG/3ML NEB HHN SCH ×3 (02:26→20:00)
[2023-06-22] MEDS: INSULIN LISPRO 100 UNITS/ML SUBCUT SCH ×3 (06:00→12:00)
[2023-06-22] MEDS: BLOOD SUGAR DIAGNOSTIC STRIP TEST SCH ×3 (06:13→12:00)
[2023-06-22] MEDS: MIDODRINE HCL 2.5MG TABLET PO SCH ×3 (06:16→21:56)
[2023-06-22] MEDS: ONDANSETRON HCL 4MG/2ML INJ IV PRN ×2 (06:16→14:17)
[2023-06-22 07:21] LABS: HEMATOCRIT. 24.3 % (42.0-52.0); HEMOGLOBIN. 8.1 g/dL (14.0-18.0); MEAN CORPUSCULAR HEMOGLOBIN 27.6 pg (28.0-32.0); MEAN CORPUSCULAR HGB CONC 33.2 g/dL (31.0-37.0); MEAN CORPUSCULAR VOLUME 83.1 fL (80.0-94.0); MEAN PLATELET VOLUME 7.3 fl (7.4-10.4); PLATELET 248 x1000/uL (130-400); RED BLOOD CELL COUNT 2.92 mill/uL (4.7-6.1); RED CELL DISTRIBUTION WIDTH 17.6 % (11.6-14.6); WHITE BLOOD COUNT 2.6 x1000/uL (4.5-11.0)
[2023-06-22 07:24] LABS: DIFFERENTIAL COMMENT 1
[2023-06-22 08:02] LABS: CALCIUM 7.7 mg/dL (8.5-10.1); CARBON DIOXIDE 27 mEq/L (21-32); CHLORIDE 84 mEq/L (98-107); INDEX HEMOLYSI 1 (1-3); INDEX ICTERIC 1 (1-4); INDEX LIPEMIC 1 (1-3)
[2023-06-22 08:06] LABS: CREATININE 0.5 mg/dL (0.6-1.3); GLUCOSE 89 mg/dL (70-105); UREA NITROGEN BLOOD 6 mg/dL (7-21)
[2023-06-22 08:15] LABS: SODIUM 120 mEq/L (136-145)
[2023-06-22] MEDS ORDERED: SODIUM CHLORIDE 3% 500ML IV SOLN IV ONE (09:45)
[2023-06-22] MEDS: FAMOTIDINE 20MG/2ML VIAL IV SCH (09:54)
[2023-06-22] MEDS: METOCLOPRAMIDE HCL 10MG/2ML VIAL IV PRN ×2 (09:55→10:21)
[2023-06-22] MEDS ORDERED: SODIUM POLYSTYRENE SULFONATE 15 G/60 ML BOT PO SCH (10:00)
[2023-06-22] MEDS ORDERED: SODIUM CHLORIDE 3% 500 ML IV SCH (11:00)
[2023-06-22 11:01] LABS: INDEX HEMOLYSI 1 (1-3); INDEX ICTERIC 1 (1-4); INDEX LIPEMIC 1 (1-3)
[2023-06-22 11:49] LABS: ALANINE AMINOTRANSFERASE 31 IU/L (13-61); ALBUMIN 1.8 g/dL (3.4-5.0); ASPARTATE AMINOTRANSFERASE 36 IU/L (15-37); BILIRUBIN DIRECT < 0.1 mg/dL (0.0-0.2); BILIRUBIN TOTAL 0.5 mg/dL (0.1-1.0); PROTEIN TOTAL 5.7 g/dL (6.0-8.3)
[2023-06-22] MEDS ORDERED: PANTOPRAZOLE SODIUM 40 MG/VIAL IV SCH (12:00)
[2023-06-22] MEDS: ENOXAPARIN 40MG/0.4ML SYR SUBCUT SCH (12:22)
[2023-06-22] MEDS: SUCRALFATE 1 G/10 ML UDC PO SCH ×3 (12:26→21:56)
[2023-06-22 13:57] LABS: GAMMA GLUTAMYL TRANSPEPTIDASE 403 IU/L (11-50)
[2023-06-22 14:40] LABS: ANISOCYTOSIS 1+; MICROCYTOSIS 1+; PLATELET ESTIMATE NORMAL
[2023-06-22] MEDS: METOCLOPRAMIDE HCL 10MG/2ML VIAL IV SCH (17:53)
[2023-06-22] MEDS ORDERED: METOCLOPRAMIDE HCL 10MG/2ML VIAL IV SCH (18:00)
[2023-06-23] MEDS: BLOOD SUGAR DIAGNOSTIC STRIP TEST SCH ×5 (00:37→23:20)
[2023-06-23] MEDS: METOCLOPRAMIDE HCL 10MG/2ML VIAL IV SCH ×5 (00:52→23:20)
[2023-06-23 04:41] LABS: HEMATOCRIT. 25.9 % (42.0-52.0); HEMOGLOBIN. 8.6 g/dL (14.0-18.0); MEAN CORPUSCULAR HEMOGLOBIN 27.5 pg (28.0-32.0); MEAN CORPUSCULAR HGB CONC 33.1 g/dL (31.0-37.0); MEAN CORPUSCULAR VOLUME 82.9 fL (80.0-94.0); MEAN PLATELET VOLUME 7.2 fl (7.4-10.4); PLATELET 249 x1000/uL (130-400); RED BLOOD CELL COUNT 3.13 mill/uL (4.7-6.1); RED CELL DISTRIBUTION WIDTH 17.5 % (11.6-14.6); WHITE BLOOD COUNT 3.3 x1000/uL (4.5-11.0)
[2023-06-23 04:46] LABS: DIFFERENTIAL COMMENT 1
[2023-06-23 04:50] LABS: CALCIUM 7.5 mg/dL (8.5-10.1); CARBON DIOXIDE 26 mEq/L (21-32); CHLORIDE 85 mEq/L (98-107); GLUCOSE 79 mg/dL (70-105); INDEX HEMOLYSI 2 (1-3); INDEX ICTERIC 1 (1-4); INDEX LIPEMIC 1 (1-3); POTASSIUM 5.1 mEq/L (3.5-5.1); UREA NITROGEN BLOOD 6 mg/dL (7-21)
[2023-06-23 04:54] LABS: CREATININE 0.4 mg/dL (0.6-1.3)
[2023-06-23] MEDS: MIDODRINE HCL 2.5MG TABLET PO SCH ×3 (05:39→21:17)
[2023-06-23] MEDS: INSULIN LISPRO 100 UNITS/ML SUBCUT SCH ×5 (06:00→23:20)
[2023-06-23 06:20] LABS: SODIUM 115 mEq/L (136-145)
[2023-06-23] MEDS: ATOVAQUONE 750 MG/5 ML UDC PO SCH ×2 (08:10→17:55)
[2023-06-23] MEDS: MENTHOL/LANOLIN/CALAMINE/ZN OX OINT 71GM TOP SCH ×2 (09:00→17:41)
[2023-06-23] MEDS: SUCRALFATE 1 G/10 ML UDC PO SCH ×4 (10:14→21:17)
[2023-06-23] MEDS: SODIUM CHLORIDE 0.9% 1,000 ML IV SCH (10:16)
[2023-06-23] MEDS ORDERED: SODIUM CHLORIDE 3% 500ML IV SOLN IV ONE (11:30)
[2023-06-23 11:59] LABS: ANISOCYTOSIS 1+; PLATELET ESTIMATE NORMAL
[2023-06-23 12:00] VITALS: BP 122/97; PULSE 99; RESP 18; TEMP 96.7
[2023-06-23] MEDS ORDERED: SODIUM CHLORIDE 3% 200 ML IV SCH (12:30)
[2023-06-23] MEDS: ENOXAPARIN 40MG/0.4ML SYR SUBCUT SCH (13:16)
[2023-06-23 16:00] VITALS: BP 114/64; PULSE 92; RESP 20; TEMP 96.9
[2023-06-23] MEDS: ONDANSETRON HCL 4MG/2ML INJ IV PRN (17:43)
[2023-06-23 20:00] VITALS: BP 124/83; PULSE 108; RESP 18; TEMP 99
[2023-06-24] VITALS: BP 104/61; PULSE 116; RESP 18; TEMP 99
[2023-06-24 04:00] VITALS: BP 113/59; PULSE 114; RESP 18; TEMP 97
[2023-06-24] MEDS: INSULIN LISPRO 100 UNITS/ML SUBCUT SCH ×4 (05:45→21:13)
[2023-06-24] MEDS: BLOOD SUGAR DIAGNOSTIC STRIP TEST SCH ×4 (05:45→21:13)
[2023-06-24] MEDS: SODIUM CHLORIDE 0.9% 1,000 ML IV SCH (05:57)
[2023-06-24] MEDS: METOCLOPRAMIDE HCL 10MG/2ML VIAL IV SCH ×3 (05:57→17:21)
[2023-06-24] MEDS: SUCRALFATE 1 G/10 ML UDC PO SCH ×4 (05:57→21:13)
[2023-06-24] MEDS: MIDODRINE HCL 2.5MG TABLET PO SCH ×3 (05:57→21:13)
[2023-06-24 06:41] LABS: HEMATOCRIT. 21.2 % (42.0-52.0); HEMOGLOBIN. 7.4 g/dL (14.0-18.0); MEAN CORPUSCULAR HEMOGLOBIN 28.7 pg (28.0-32.0); MEAN PLATELET VOLUME 6.9 fl (7.4-10.4); PLATELET 228 x1000/uL (130-400); RED BLOOD CELL COUNT 2.58 mill/uL (4.7-6.1); RED CELL DISTRIBUTION WIDTH 17.1 % (11.6-14.6); WHITE BLOOD COUNT 2.3 x1000/uL (4.5-11.0)
[2023-06-24 07:32] LABS: DIFFERENTIAL COMMENT 1
[2023-06-24 08:00] VITALS: BP 115/58; PULSE 70; RESP 18; TEMP 96.9
[2023-06-24 08:31] LABS: CHLORIDE 86 mEq/L (98-107); INDEX HEMOLYSI 1 (1-3); INDEX ICTERIC 1 (1-4); INDEX LIPEMIC 1 (1-3); POTASSIUM 4.4 mEq/L (3.5-5.1)
[2023-06-24 08:36] LABS: CALCIUM 7.4 mg/dL (8.5-10.1); CARBON DIOXIDE 25 mEq/L (21-32); CREATININE 0.5 mg/dL (0.6-1.3); GLUCOSE 87 mg/dL (70-105); UREA NITROGEN BLOOD 16 mg/dL (7-21)
[2023-06-24 08:40] LABS: SODIUM 120 mEq/L (136-145)
[2023-06-24] MEDS: ONDANSETRON HCL 4MG/2ML INJ IV PRN ×2 (09:35→17:28)
[2023-06-24] MEDS: MENTHOL/LANOLIN/CALAMINE/ZN OX OINT 71GM TOP SCH ×2 (09:35→17:21)
[2023-06-24] MEDS: ATOVAQUONE 750 MG/5 ML UDC PO SCH ×2 (09:35→17:21)
[2023-06-24 12:00] VITALS: BP 103/57; PULSE 94; RESP 18; TEMP 97
[2023-06-24] MEDS: ENOXAPARIN 40MG/0.4ML SYR SUBCUT SCH (12:00)
[2023-06-24 16:00] VITALS: BP 90/57; PULSE 117; RESP 18; TEMP 97.5
[2023-06-24 20:00] VITALS: BP 99/59; PULSE 118; RESP 18; TEMP 98
[2023-06-25] VITALS (44 sets, daily range): BP systolic 67–157; BP diastolic 24–145; PULSE 107–138; RESP 18–34; TEMP 97.9–99.8
[2023-06-25] MEDS: METOCLOPRAMIDE HCL 10MG/2ML VIAL IV SCH ×4 (05:48→18:46)
[2023-06-25] MEDS: INSULIN LISPRO 100 UNITS/ML SUBCUT SCH ×3 (05:48→18:42)
[2023-06-25] MEDS: SODIUM CHLORIDE 0.9% 1,000 ML IV SCH ×2 (05:48→15:00)
[2023-06-25] MEDS: BLOOD SUGAR DIAGNOSTIC STRIP TEST SCH ×2 (05:48→18:00)
[2023-06-25] MEDS: MIDODRINE HCL 2.5MG TABLET PO SCH ×3 (05:48→21:49)
[2023-06-25] MEDS: SUCRALFATE 1 G/10 ML UDC PO SCH ×3 (05:48→21:48)
[2023-06-25 07:53] LABS: MEAN CORPUSCULAR HEMOGLOBIN 28.3 pg (28.0-32.0); MEAN CORPUSCULAR VOLUME 83.3 fL (80.0-94.0); PLATELET 173 x1000/uL (130-400); RED BLOOD CELL COUNT 2.32 mill/uL (4.7-6.1); RED CELL DISTRIBUTION WIDTH 17.7 % (11.6-14.6)
[2023-06-25] MEDS: ATOVAQUONE 750 MG/5 ML UDC PO SCH ×2 (08:18→21:48)
[2023-06-25] MEDS: MENTHOL/LANOLIN/CALAMINE/ZN OX OINT 71GM TOP SCH ×2 (08:19→21:48)
[2023-06-25 09:54] LABS: DIFFERENTIAL COMMENT 1
[2023-06-25 09:58] LABS: HEMOGLOBIN. 6.6 g/dL (14.0-18.0); WHITE BLOOD COUNT 1.2 x1000/uL (4.5-11.0)
[2023-06-25 09:59] LABS: HEMATOCRIT. 19.3 % (42.0-52.0)
[2023-06-25 11:41] LABS: CALCIUM 7.3 mg/dL (8.5-10.1); CHLORIDE 93 mEq/L (98-107); INDEX HEMOLYSI 1 (1-3); INDEX ICTERIC 1 (1-4); INDEX LIPEMIC 1 (1-3); POTASSIUM 4.1 mEq/L (3.5-5.1); SODIUM 124 mEq/L (136-145)
[2023-06-25 11:44] LABS: CARBON DIOXIDE 23 mEq/L (21-32); CREATININE 0.5 mg/dL (0.6-1.3); GLUCOSE 104 mg/dL (70-105); UREA NITROGEN BLOOD 15 mg/dL (7-21)
[2023-06-25] MEDS ORDERED: SODIUM CHLORIDE 0.9% 250 ML IV NR (12:45)
[2023-06-25] MEDS ORDERED: ALBUMIN HUMAN 12.5GM/50ML (25%) IV NR (15:00)
[2023-06-25] MEDS: WATER IV SCH (15:19)
[2023-06-25] MEDS: DEXT 5% IV SCH (15:19)
[2023-06-25] MEDS: AZITHROMYCIN IV SCH (15:19)
[2023-06-25 17:00] LABS: ANISOCYTOSIS 1+; PLATELET ESTIMATE NORMAL
[2023-06-25] MEDS: MAGIC MOUTHWASH PO SCH (17:00)
[2023-06-25] MEDS ORDERED: NON FORMULARY PATIENT HOME MED XX SCH (17:45)
[2023-06-25 18:45] LABS: CALCIUM 7.2 mg/dL (8.5-10.1); CHLORIDE 93 mEq/L (98-107); INDEX HEMOLYSI 1 (1-3); INDEX ICTERIC 1 (1-4); INDEX LIPEMIC 1 (1-3); POTASSIUM 3.8 mEq/L (3.5-5.1); SODIUM 123 mEq/L (136-145)
[2023-06-25 18:48] LABS: MEAN CORPUSCULAR HEMOGLOBIN 28.4 pg (28.0-32.0); MEAN CORPUSCULAR HGB CONC 33.3 g/dL (31.0-37.0); MEAN CORPUSCULAR VOLUME 85.4 fL (80.0-94.0); MEAN PLATELET VOLUME 6.9 fl (7.4-10.4); PLATELET 113 x1000/uL (130-400); RED BLOOD CELL COUNT 2.26 mill/uL (4.7-6.1); RED CELL DISTRIBUTION WIDTH 16.1 % (11.6-14.6)
[2023-06-25 18:49] LABS: CARBON DIOXIDE 23 mEq/L (21-32); CREATININE 0.4 mg/dL (0.6-1.3); GLUCOSE 190 mg/dL (70-105); UREA NITROGEN BLOOD 28 mg/dL (7-21)
[2023-06-25 19:10] LABS: DIFFERENTIAL COMMENT 1
[2023-06-25 19:13] LABS: HEMATOCRIT. 19.3 % (42.0-52.0); HEMOGLOBIN. 6.4 g/dL (14.0-18.0)
[2023-06-25 19:50] LABS: ANISOCYTOSIS 1+; PLATELET ESTIMATE NORMAL
[2023-06-25 20:30] LABS: ANISOCYTOSIS 1+; PLATELET ESTIMATE DECREASED
[2023-06-25] MEDS: ACETAMINOPHEN 650MG/20.3ML UDC PO PRN (22:24)
[2023-06-26] VITALS (99 sets, daily range): BP systolic 72–155; BP diastolic 43–139; PULSE 98–163; RESP 18–42; TEMP 97.8–100
[2023-06-26] MEDS: BLOOD SUGAR DIAGNOSTIC STRIP TEST SCH ×4 (00:01→17:21)
[2023-06-26] MEDS: METOCLOPRAMIDE HCL 10MG/2ML VIAL IV SCH ×4 (00:07→17:20)
[2023-06-26] MEDS ORDERED: DIPHENHYDRAMINE 50MG/ML VIAL ONE (03:05)
[2023-06-26] MEDS: ACETAMINOPHEN 650MG/20.3ML UDC PO PRN (03:12)
[2023-06-26] MEDS ORDERED: DIPHENHYDRAMINE 50MG/ML VIAL IV NR (03:15)
[2023-06-26] MEDS: PHENYLEPHRINE 50 MG in DEXT 5% WATER 245 ML IV PRN ×4 (03:53→22:49)
[2023-06-26 05:38] LABS: CHLORIDE 96 mEq/L (98-107); INDEX HEMOLYSI 1 (1-3); INDEX ICTERIC 1 (1-4); INDEX LIPEMIC 1 (1-3); POTASSIUM 3.6 mEq/L (3.5-5.1); SODIUM 125 mEq/L (136-145)
[2023-06-26 05:45] LABS: CALCIUM 7.1 mg/dL (8.5-10.1); CARBON DIOXIDE 22 mEq/L (21-32); CREATININE 0.4 mg/dL (0.6-1.3); GLUCOSE 116 mg/dL (70-105); UREA NITROGEN BLOOD 30 mg/dL (7-21)
[2023-06-26] MEDS: INSULIN LISPRO 100 UNITS/ML SUBCUT SCH ×4 (06:00→17:22)
[2023-06-26] MEDS: MIDODRINE HCL 2.5MG TABLET PO SCH (06:16)
[2023-06-26 06:43] LABS: BASOPHILS % 0.8 % (0.0-2.0); HEMATOCRIT. 22.1 % (42.0-52.0); HEMOGLOBIN. 7.7 g/dL (14.0-18.0); LYMPHOCYTES % 19.3 % (20.0-50.0); MEAN CORPUSCULAR HEMOGLOBIN 29.4 pg (28.0-32.0); MEAN CORPUSCULAR HGB CONC 34.9 g/dL (31.0-37.0); MEAN CORPUSCULAR VOLUME 84.4 fL (80.0-94.0); MEAN PLATELET VOLUME 7.2 fl (7.4-10.4); MONOCYTES % 6.1 % (2.0-8.0); NEUTROPHILS % 73.8 % (40.0-76.0); PLATELET 117 x1000/uL (130-400); RED BLOOD CELL COUNT 2.62 mill/uL (4.7-6.1); RED CELL DISTRIBUTION WIDTH 14.8 % (11.6-14.6); WHITE BLOOD COUNT 3.8 x1000/uL (4.5-11.0)
[2023-06-26] MEDS: SUCRALFATE 1 G/10 ML UDC PO SCH ×4 (08:07→21:00)
[2023-06-26] MEDS: MENTHOL/LANOLIN/CALAMINE/ZN OX OINT 71GM TOP SCH ×2 (09:26→17:09)
[2023-06-26] MEDS: ATOVAQUONE 750 MG/5 ML UDC PO SCH ×2 (09:28→17:21)
[2023-06-26] MEDS: MAGIC MOUTHWASH PO SCH ×3 (09:28→17:09)
[2023-06-26] MEDS: ONDANSETRON HCL 4MG/2ML INJ IV PRN ×2 (09:52→17:03)
[2023-06-26 10:53] LABS: INR 1.2; PROTHROMBIN TIME 13.2 sec (9.6-11.0)
[2023-06-26] MEDS: VASOPRESSIN 20 UNIT in SODIUM CHLORIDE 0.9% 99 ML IV PRN (11:00)
[2023-06-26 11:21] LABS: BG BASE EXCESS -12.6 mmol/L (-2.0-2.0); BG CARBOXYHEMOGLOBIN 0.3 % (0.5-1.5); BG FRACTION INSPIRED OXYGEN 40; BG HCO3 ACT 11.3 mmol/L (22.0-26.0); BG METHEMOGLOBIN 0.3 % (0.0-1.5); BG OXYHEMOGLOBIN 97.4 % (94.0-97.0); BG PCO2 18.9 mmHg (35.0-45.0); BG PH 7.393 (7.350-7.450); BG PO2 121.6 mmHg (75.0-100.0); BG SAMPLE SITE RIGHT BRACHIAL; BG TOTAL HEMOGLOBIN 5.6 g/dL (12.0-18.0); BG VENT MODE NASAL CANNULA
[2023-06-26] MEDS: PANTOPRAZOLE SODIUM 40 MG/VIAL IV SCH ×2 (12:23→22:41)
[2023-06-26] MEDS: SODIUM BICARBONATE 150 MEQ in DEXTROSE 5% WATER 1,000 ML IV SCH (13:23)
[2023-06-26] MEDS ORDERED: MIDODRINE HCL 5MG TABLET PO SCH (14:00)
[2023-06-26] MEDS: MIDODRINE HCL 5MG TABLET PO SCH ×2 (15:04→22:00)
[2023-06-26 17:05] LABS: BG BASE EXCESS -6.4 mmol/L (-2.0-2.0); BG CARBOXYHEMOGLOBIN 0.1 % (0.5-1.5); BG DEOXYHEMOGLOBIN 2.6 % (0.0-5.0); BG FRACTION INSPIRED OXYGEN 44; BG HCO3 ACT 16.9 mmol/L (22.0-26.0); BG METHEMOGLOBIN 0.5 % (0.0-1.5); BG OXYGEN SATURATION 97.4 % (92.0-98.5); BG OXYHEMOGLOBIN 96.8 % (94.0-97.0); BG PH 7.447 (7.350-7.450); BG PO2 108.1 mmHg (75.0-100.0); BG SAMPLE SITE RIGHT BRACHIAL; BG TOTAL HEMOGLOBIN 7.1 g/dL (12.0-18.0); BG VENT MODE NASAL CANNULA
[2023-06-26 17:48] LABS: INR 1.5; PROTHROMBIN TIME 16.1 sec (9.6-11.0)
[2023-06-26 17:55] LABS: HEMOGLOBIN 6.3 g/dL (14.0-18.0)
[2023-06-26] MEDS ORDERED: DIPHENHYDRAMINE 25MG CAPSULE PO PRN (18:00)
[2023-06-26] MEDS ORDERED: OCTREOTIDE ACETATE 50 MCG/ML 1ML IV SCH (20:00)
[2023-06-26] MEDS: OCTREOTIDE 1,000 MCG in SODIUM CHLORIDE 0.9% 98 ML IV SCH (22:55)
[2023-06-27] VITALS (121 sets, daily range): BP systolic 50–187; BP diastolic 23–136; PULSE 96–140; RESP 15–45; TEMP 97.7–99.7
[2023-06-27] MEDS: METOCLOPRAMIDE HCL 10MG/2ML VIAL IV SCH ×2 (00:35→05:17)
[2023-06-27] MEDS: INSULIN LISPRO 100 UNITS/ML SUBCUT SCH ×2 (00:42→05:18)
[2023-06-27] MEDS: BLOOD SUGAR DIAGNOSTIC STRIP TEST SCH ×2 (00:42→05:18)
[2023-06-27] MEDS: VASOPRESSIN 20 UNIT in SODIUM CHLORIDE 0.9% 99 ML IV PRN ×2 (01:34→14:13)
[2023-06-27 02:23] LABS: HEMATOCRIT. 22.4 % (42.0-52.0); HEMOGLOBIN. 7.7 g/dL (14.0-18.0); MEAN CORPUSCULAR HEMOGLOBIN 29.8 pg (28.0-32.0); MEAN CORPUSCULAR HGB CONC 34.5 g/dL (31.0-37.0); MEAN CORPUSCULAR VOLUME 86.3 fL (80.0-94.0); MEAN PLATELET VOLUME 8.6 fl (7.4-10.4); PLATELET 64 x1000/uL (130-400); RED BLOOD CELL COUNT 2.59 mill/uL (4.7-6.1); RED CELL DISTRIBUTION WIDTH 15.1 % (11.6-14.6); WHITE BLOOD COUNT 5.8 x1000/uL (4.5-11.0)
[2023-06-27 02:26] LABS: DIFFERENTIAL COMMENT 1
[2023-06-27 03:14] LABS: PLATELET ESTIMATE DECREASED
[2023-06-27] MEDS: PHENYLEPHRINE 50 MG in DEXT 5% WATER 245 ML IV PRN ×3 (03:24→19:49)
[2023-06-27] MEDS: SODIUM BICARBONATE 150 MEQ in DEXTROSE 5% WATER 1,000 ML IV SCH ×2 (05:17→22:42)
[2023-06-27] MEDS: MIDODRINE HCL 5MG TABLET PO SCH ×2 (05:17→14:00)
[2023-06-27 05:47] LABS: CHLORIDE 96 mEq/L (98-107); INDEX HEMOLYSI 1 (1-3); INDEX ICTERIC 1 (1-4); INDEX LIPEMIC 1 (1-3); POTASSIUM 3.7 mEq/L (3.5-5.1); SODIUM 126 mEq/L (136-145)
[2023-06-27 05:54] LABS: CALCIUM 6.3 mg/dL (8.5-10.1); CARBON DIOXIDE 19 mEq/L (21-32); CREATININE 1.1 mg/dL (0.6-1.3); GLUCOSE 309 mg/dL (70-105); UREA NITROGEN BLOOD 62 mg/dL (7-21)
[2023-06-27 06:09] LABS: MEAN CORPUSCULAR HEMOGLOBIN 29.1 pg (28.0-32.0); MEAN CORPUSCULAR HGB CONC 33.7 g/dL (31.0-37.0); MEAN CORPUSCULAR VOLUME 86.4 fL (80.0-94.0); MEAN PLATELET VOLUME 9.1 fl (7.4-10.4); PLATELET 65 x1000/uL (130-400); RED BLOOD CELL COUNT 2.12 mill/uL (4.7-6.1); RED CELL DISTRIBUTION WIDTH 14.8 % (11.6-14.6)
[2023-06-27 06:26] LABS: DIFFERENTIAL COMMENT 1; HEMATOCRIT. 18.3 % (42.0-52.0); HEMOGLOBIN. 6.2 g/dL (14.0-18.0)
[2023-06-27 08:18] LABS: MEAN CORPUSCULAR HGB CONC 33.6 g/dL (31.0-37.0); MEAN CORPUSCULAR VOLUME 89.4 fL (80.0-94.0); MEAN PLATELET VOLUME 9.3 fl (7.4-10.4); PLATELET 59 x1000/uL (130-400); RED BLOOD CELL COUNT 1.81 mill/uL (4.7-6.1); RED CELL DISTRIBUTION WIDTH 14.7 % (11.6-14.6); WHITE BLOOD COUNT 5.8 x1000/uL (4.5-11.0)
[2023-06-27] MEDS: ATOVAQUONE 750 MG/5 ML UDC PO SCH (08:20)
[2023-06-27 08:26] LABS: HEMOGLOBIN. 5.4 g/dL (14.0-18.0)
[2023-06-27 08:27] LABS: DIFFERENTIAL COMMENT 1; HEMATOCRIT. 16.1 % (42.0-52.0)
[2023-06-27] MEDS: MAGIC MOUTHWASH PO SCH (09:00)
[2023-06-27] MEDS ORDERED: NOREPINEPHRINE 8MG/250ML PMX 250 ML IV PRN (09:15)
[2023-06-27 09:28] LABS: BG BASE EXCESS -8.2 mmol/L (-2.0-2.0); BG CARBOXYHEMOGLOBIN 0.1 % (0.5-1.5); BG DEOXYHEMOGLOBIN 1.1 % (0.0-5.0); BG FRACTION INSPIRED OXYGEN 44; BG HCO3 ACT 15.1 mmol/L (22.0-26.0); BG METHEMOGLOBIN 0.3 % (0.0-1.5); BG OXYGEN SATURATION 98.9 % (92.0-98.5); BG OXYHEMOGLOBIN 98.5 % (94.0-97.0); BG PCO2 23.4 mmHg (35.0-45.0); BG PH 7.428 (7.350-7.450); BG PO2 192.9 mmHg (75.0-100.0); BG SAMPLE SITE RIGHT RADIAL; BG TOTAL HEMOGLOBIN 7.5 g/dL (12.0-18.0); BG VENT MODE NASAL CANNULA
[2023-06-27 10:57] LABS: NUCLEATED RED BLOOD CELLS 1 /100 WBC; PLATELET ESTIMATE MARKEDLY DECREASED
[2023-06-27 11:31] LABS: PLATELET ESTIMATE MARKEDLY DECREASED
[2023-06-27 11:40] LABS: HEMATOCRIT 23.5 % (42.0-52.0); HEMOGLOBIN 7.7 g/dL (14.0-18.0)
[2023-06-27] MEDS: SUCRALFATE 1 G/10 ML UDC PO SCH (12:50)
[2023-06-27] MEDS ORDERED: SUCCINYLCHOLINE CHLORIDE 200MG/10ML IV ONE (14:05)
[2023-06-27] MEDS ORDERED: ETOMIDATE 2MG/ML 10ML VIAL IV ONE (14:05)
[2023-06-27] MEDS ORDERED: PROPOFOL 200MG/20ML VIAL IV ONE (14:08)
[2023-06-27] MEDS: OCTREOTIDE 1,000 MCG in SODIUM CHLORIDE 0.9% 98 ML IV SCH (14:13)
[2023-06-27] MEDS ORDERED: ALBUMIN HUMAN 25GM/500ML (5%) IV NR (16:00)
[2023-06-27] MEDS ORDERED: CEFTRIAXONE 2GM/50ML (ADDEASE) 50 ML IV SCH (16:00)
[2023-06-27] MEDS: ONDANSETRON HCL 4MG/2ML INJ IV PRN (17:30)
[2023-06-27] MEDS ORDERED: CEFTRIAXONE 2 G in DEXTROSE 5% WATER 50 ML IV SCH (18:00)
[2023-06-27 18:09] LABS: HEMOGLOBIN 5.2 g/dL (14.0-18.0)
[2023-06-27] MEDS ORDERED: SODIUM BICARBONATE 150 MEQ in DEXTROSE 5% WATER 1,000 ML IV SCH (22:00)
[2023-06-28] VITALS (53 sets, daily range): BP systolic 44–208; BP diastolic 15–181; PULSE 0–169; RESP 0–47; TEMP 98–98.9
[2023-06-28] MEDS: VASOPRESSIN 20 UNIT in SODIUM CHLORIDE 0.9% 99 ML IV PRN (00:30)
[2023-06-28] MEDS: PHENYLEPHRINE 50 MG in DEXT 5% WATER 245 ML IV PRN (01:12)
[2023-06-28] MEDS: ONDANSETRON HCL 4MG/2ML INJ IV PRN (03:17)
[2023-06-28] MEDS: SUCRALFATE 1 G/10 ML UDC PO SCH (03:17)
[2023-06-28 04:08] LABS: MEAN CORPUSCULAR HEMOGLOBIN 30.3 pg (28.0-32.0); MEAN CORPUSCULAR HGB CONC 34.2 g/dL (31.0-37.0); MEAN CORPUSCULAR VOLUME 88.7 fL (80.0-94.0); MEAN PLATELET VOLUME 9.6 fl (7.4-10.4); PLATELET 62 x1000/uL (130-400); RED BLOOD CELL COUNT 1.92 mill/uL (4.7-6.1); RED CELL DISTRIBUTION WIDTH 13.9 % (11.6-14.6); WHITE BLOOD COUNT 8.6 x1000/uL (4.5-11.0)
[2023-06-28 04:16] LABS: INR 2.5; POTASSIUM 4.3 mEq/L (3.5-5.1); PROTHROMBIN TIME 25.6 sec (9.6-11.0)
[2023-06-28 04:19] LABS: CREATININE 1.8 mg/dL (0.6-1.3)
[2023-06-28 04:24] LABS: HEMOGLOBIN. 5.8 g/dL (14.0-18.0)
[2023-06-28 04:25] LABS: DIFFERENTIAL COMMENT 1
[2023-06-28 04:27] LABS: CALCIUM 5.3 mg/dL (8.5-10.1)
[2023-06-28] MEDS: METOCLOPRAMIDE HCL 10MG/2ML VIAL IV SCH (05:23)
[2023-06-28] MEDS: MIDODRINE HCL 5MG TABLET PO SCH (05:23)
[2023-06-28 11:45] LABS: NUCLEATED RED BLOOD CELLS 3 /100 WBC; PLATELET ESTIMATE DECREASED
== END 2023-06-28 09:04 | DRG 890 ==
LOC: ER 17:03 → MICUSO 18:29 → EDBEDREQTM 18:31 → EDBEDREQ 18:31 → MICUSO 06-11 07:16 → 3WST 06-14 19:15 → 6EST 06-19 05:53 → 7WST 06-22 18:50 → CVICU 06-25 14:00
PROVIDERS: ADMIT Internal Medicine; ATTEND Internal Medicine
PROC: 5A1945Z Respiratory Ventilation, 24-96 Consecutive Hours (ICD-10-PCS; principal; 2023-06-10)
PROC: 0BH18EZ Insertion of Endotracheal Airway into Trachea, Via Natural or Artificial Opening Endoscopic (ICD-10-PCS; 2023-06-10)
PROC: 30233K1 Transfusion of Nonautologous Frozen Plasma into Peripheral Vein, Percutaneous Approach (ICD-10-PCS; 2023-06-26)
PROC: 30233N1 Transfusion of Nonautologous Red Blood Cells into Peripheral Vein, Percutaneous Approach (ICD-10-PCS; 2023-06-26)
PROC: 30233R1 Transfusion of Nonautologous Platelets into Peripheral Vein, Percutaneous Approach (ICD-10-PCS; 2023-06-27)
PROC: 0DJ08ZZ Inspection of Upper Intestinal Tract, Via Natural or Artificial Opening Endoscopic (ICD-10-PCS; 2023-06-27)
DX: A41.9 Sepsis, unspecified organism (principal); B20 Human immunodeficiency virus [HIV] disease; G93.41 Metabolic encephalopathy; J96.21 Acute and chronic respiratory failure with hypoxia; R57.8 Other shock; J18.9 Pneumonia, unspecified organism; E46 Unspecified protein-calorie malnutrition; I21.A1 Myocardial infarction type 2; E87.1 Hypo-osmolality and hyponatremia; Z66 Do not resuscitate; Z20.822 Contact with and (suspected) exposure to COVID-19; I10 Essential (primary) hypertension; D64.9 Anemia, unspecified; E11.649 Type 2 diabetes mellitus with hypoglycemia without coma; E78.00 Pure hypercholesterolemia, unspecified; D69.6 Thrombocytopenia, unspecified; K21.9 Gastro-esophageal reflux disease without esophagitis; E83.51 Hypocalcemia; R74.01 Elevation of levels of liver transaminase levels; I49.3 Ventricular premature depolarization; I49.1 Atrial premature depolarization; I25.2 Old myocardial infarction; Z90.49 Acquired absence of other specified parts of digestive tract; Z86.73 Personal history of transient ischemic attack (TIA), and cerebral infarction without residual deficits; Z87.01 Personal history of pneumonia (recurrent); Z86.19 Personal history of other infectious and parasitic diseases; Z85.028 Personal history of other malignant neoplasm of stomach; Z79.84 Long term (current) use of oral hypoglycemic drugs; Z78.1 Physical restraint status; K92.2 Gastrointestinal hemorrhage, unspecified
CPT/HCPCS: 36415; 36600; 71045; 71275; 72131; 74018; 74174; 80048; 80053; 80061; 80076; 80202; 80305; 81003; 82040; 82270; 82375; 82533; 82805; 82962; 82977; 83036; 83605; 83880; 83930; 83935; 84134; 84145; 84295; 84300; 84443; 84478; 84484; 85014; 85018; 85025; 85044; 85049; 85379; 85384; 86078; 86359; 86360; 86705; 86709; 86803; 86850; 86900; 86920; 86927; 87070; 87340; 87426; 87449; 87804; 92610; 93005; 93306; 94002; 94003; 94640; 97110; 97162; 97166; 97530; 99291; C9113; C9803; J0330; J0456; J0696; J1200; J1650; J1815; J2185; J2270; J2354; J2370; J2405; J2543; J2704; J2765; J3010; J3370; J3490; J7030; J7050; J7060; J7070; P9016; P9017; P9041; P9047; Q0163; A4315; P9036